=== PATIENT | female | born 1975 | race African-American/Black ===

== ENCOUNTER 2018-11-14 08:45 | Inpatient (IN) | payer BC, OTHER ==
[2018-11-09 09:52] LABS: HEMATOCRIT 37.6 % (36.0-47.0); HEMOGLOBIN 12.6 g/dL (12.0-15.5); MEAN CORPUSCULAR HEMOGLOBIN 27.2 pg (27.0-33.4); MEAN CORPUSCULAR HGB CONC 33.4 g/dL (32.0-36.0); MEAN CORPUSCULAR VOLUME 81 fl (80-97); PLATELET COUNT 431 10^3/uL (150-450); RED BLOOD COUNT 4.62 10^6/uL (3.72-5.28); RED CELL DISTRIBUTION WIDTH 13.3 % (11.5-14.0); WHITE BLOOD COUNT 6.1 10^3/uL (4.0-10.5)
[2018-11-09 09:54] LABS: APPEARANCE,URINE SLIGHTLY-CLOUDY; BILIRUBIN,URINE NEGATIVE (NEGATIVE); COLOR,URINE YELLOW; GLUCOSE, URINE >=500 mg/dL (NEGATIVE); KETONES,URINE 20 mg/dL (NEGATIVE); LEUKOCYTE ESTERASE,URINE NEGATIVE (NEGATIVE); NITRITE,URINE NEGATIVE (NEGATIVE); PROTEIN,URINE NEGATIVE (NEGATIVE); URINE SPECIFIC GRAVITY 1.039; UROBILINOGEN,URINE NEGATIVE mg/dL (<2.0)
[2018-11-09 10:10] LABS: ALBUMIN 4.6 g/dL (3.5-5.0); ALKALINE PHOSPHATASE 54 U/L (38-126); ANION GAP 14 (5-19); ASPARTATE AMINO TRANSFERASE 19 U/L (14-36); BILIRUBIN,DIRECT 0.2 mg/dL (0.0-0.4); BILIRUBIN,TOTAL 0.5 mg/dL (0.2-1.3); BLOOD UREA NITROGEN 11 mg/dL (7-20); CALCIUM 10.1 mg/dL (8.4-10.2); CARBON DIOXIDE 26 mmol/L (22-30); CHLORIDE 94 mmol/L (98-107); GLUCOSE 364 mg/dL (75-110); POTASSIUM 4.7 mmol/L (3.6-5.0); TOTAL PROTEIN 7.6 g/dL (6.3-8.2)
[~2018-11-14 08:45] MED LIST: CEFAZOLIN SODIUM 2 GM in DEXTROSE 5%-WATER 100 ML IV PRN; LACTATED RINGERS 1000 ML IV PRN; LIDOCAINE 0.5% INJ-PF (5 MG/ML) 50 ML SDV SUBCUT PRN
[2018-11-14] MEDS ORDERED: FENTANYL CITRATE INJ/PF 250 MCG/5 ML AMPULE ONE (09:18)
[2018-11-14] MEDS ORDERED: MIDAZOLAM 2 MG/2 ML INJ ONE (09:18)
[2018-11-14] MEDS ORDERED: PROPOFOL INJ 200 MG/20 ML VIAL IV ONE (09:19)
[2018-11-14] MEDS ORDERED: INSULIN REG, HUMAN 100 UNIT/ML 3 ML VIAL (PYX) ONE ×2 (09:27→12:24)
[2018-11-14] MEDS ORDERED: GLYCOPYRROLATE 1 MG/5 ML VIAL ONE (09:49)
[2018-11-14] MEDS ORDERED: ROCURONIUM BROMIDE INJ 50 MG/5 ML VIAL IV ONE (09:49)
[2018-11-14] MEDS ORDERED: NEOSTIGMINE METHYLSULFATE 10 MG/10 ML VIAL ONE (09:49)
[2018-11-14] MEDS ORDERED: DEXAMETHASONE SOD PHOSPHATE INJ 4 MG/1 ML VIAL ONE (09:49)
[2018-11-14] MEDS ORDERED: LIDOCAINE 2% INJ-PF (20 MG/ML) 2 ML AMPUL ONE (09:49)
[2018-11-14] MEDS ORDERED: KETOROLAC TROMETHAMINE 60 MG/2 ML SDV ONE (09:49)
[2018-11-14] MEDS ORDERED: ONDANSETRON HCL INJ/PF 4 MG/2 ML SDV ONE (09:49)
[2018-11-14] MEDS ORDERED: ONDANSETRON HCL INJ/PF 4 MG/2 ML SDV IV PRN (10:00)
[2018-11-14] MEDS ORDERED: DIPHENHYDRAMINE HCL 50 MG/ML VIAL IV PRN (10:00)
[2018-11-14] MEDS ORDERED: FENTANYL CITRATE INJ/PF 100 MCG/2 ML AMPUL IV PRN ×3 (10:00)
[2018-11-14] MEDS ORDERED: MEPERIDINE HCL/PF INJ 25 MG/1 ML DISP.SYRIN IV PRN (10:00)
[2018-11-14] MEDS ORDERED: MORPHINE SULFATE 10 MG/ML INJ IV PRN (10:00)
[2018-11-14] MEDS ORDERED: OXYCODONE-ACETAMINOPHEN 5-325 MG TABLET PO PRN ×3 (10:00→11:48)
[2018-11-14] MEDS ORDERED: PROMETHAZINE HCL INJ 25 MG/1 ML VIAL IV PRN ×2 (10:00→11:48)
[2018-11-14] MEDS ORDERED: SIMETHICONE 80 MG TAB.CHEW PO PRN (11:48)
[2018-11-14] MEDS ORDERED: ACETAMINOPHEN 325 MG TABLET PO PRN (11:48)
[2018-11-14] MEDS ORDERED: ACETAMINOPHEN 1,000 MG/100 ML RTUPB IV PRN (11:48)
--- NOTE | 2018-11-14 12:05 | Operative Report ---
Operative Report DATE OF SURGERY: 11/14/18 PREOPERATIVE DIAGNOSIS: Patient with heavy menses fibroids and enlarged uterus requesting hysterectomy and bilateral salongo-oophorectomy POSTOPERATIVE DIAGNOSIS: Same OPERATION: OPHELIA/BSO SURGEON: ABEL CANTU ANESTHESIA: GA TISSUE REMOVED OR ALTERED: Uterus tubes and ovaries COMPLICATIONS: None ESTIMATED BLOOD LOSS: 120 cc INTRAOPERATIVE FINDINGS: Dense scarring at the fascia as well as the low uterine segment. PROCEDURE: Patient was taken the OR and placed in supine position. General anesthesia was induced. Her perineum and vagina were prepared in sterile fashion Holliday catheter was placed. Her abdomen was prepared in a sterile fashion as well. She was draped. A low transverse incision was made on her old scar. This was carried down the level of the fascia which was nicked in the midline. Fascial incision was extended bilaterally using curved Walker scissors. The fascia was off the rectus muscles using sharp and blunt dissection. There was dense scarring at this layer. The rectus muscles were midline. [place] toneum was entered without incident. Peritoneal incision was extended superiorly and inferiorly take care not to injure bladder. An Gus retractor was then placed. The bowel contents were packed back with 3 moist lap sponges. The uterus was brought out of the incision and grasped with a Yoselin thyroid clamp. Using the LigaSure device the round ligaments were divided bilaterally. Peritoneum was incised anteriorly creating a bladder flap. The ureters were noted well away from the ovarian pedicles and the infundibulopelvic pedicles were clamped cauterized and cut using the LigaSure device. Both ovaries and tubes were passed off the field at this point. The bladder was taken off the anterior aspect cervix using sharp and blunt dissection. There was quite a bit of scarring in this region as well. The uterine arteries were skeletonized and then clamped with the LigaSure device cauterized and cut. Likewise the cardinal ligaments were clamped cauterized and cut with the LigaSure device. During this time I continued to take the bladder off the lower aspect of the cervix using mainly sharp dissection. The low aspect of the cervix could be palpated. The vaginal angles were clamped with curved Kena clamp bilaterally and cut. The cervix was excised free with curved scissors. There was a large polyp hanging out the cervix. The angle sutures have been previously placed and the vaginal cuff was closed with a running locking layer of 0 Vicryl. The tissue in this low pelvis was quite scarred and it is possible that a small bit of cervix may have been left behind. I was unable to palpate any remaining cervix. The pelvis was irrigated and suctioned free of fluid. Hemostasis was good. Lap sponges were removed and retractor removed. The bowel was allowed to settle and sent natural configuration. The anterior abdominal peritoneum was closed with a running 2-0 chromic stitch. Subfascial tissues were inspected for bleeding the fascia was closed with a running 0 Vicryl in 2 segments. The wound was irrigated and suctioned free of fluid in the subcu layer was closed with a 2-0 plain gut stitch and skin closed with a 4-0 undyed Vicryl stitch. Dressing was applied. She was brought out of anesthesia and taken to recovery room in stable condition.
[2018-11-14] MEDS: INSULIN REG, HUMAN 100 UNIT/ML 3 ML VIAL (PYX) SUBCUT ONE ×2 (12:24→13:47)
[2018-11-14] MEDS: FENTANYL CITRATE INJ/PF 100 MCG/2 ML AMPUL ONE ×2 (12:26→12:30)
[2018-11-14] MEDS ORDERED: DEXTROSE 40% GEL 15 GM TUBE X 2 PO PRN (12:30)
[2018-11-14] MEDS ORDERED: DEXTROSE 50%-WATER SYRINGE 25 GM/50 ML DOSE IV PRN (12:30)
[2018-11-14] MEDS ORDERED: DEXTROSE 50%-WATER SYRINGE 12.5 GM/25 ML DOSE IV PRN (12:30)
[2018-11-14] MEDS ORDERED: GLUCAGON,HUMAN RECOMB 1 MG INJ IM ONE (12:30)
[2018-11-14] MEDS ORDERED: GLUCAGON,HUMAN RECOMB 1 MG INJ IM PRN (12:30)
[2018-11-14] MEDS ORDERED: DEXTROSE 40% GEL 15 GM TUBE PO PRN (12:30)
[2018-11-14] MEDS: OXYCODONE-ACETAMINOPHEN 5-325 MG TABLET PO PRN ×2 (13:30→19:47)
[2018-11-14] MEDS: IBUPROFEN 800 MG TABLET PO SCH ×2 (13:30→18:30)
[2018-11-14] MEDS: HYDROMORPHONE HCL INJ/PF 2 MG/ML AMPULE IV PRN ×2 (13:44→16:44)
[2018-11-14] MEDS ORDERED: GLIPIZIDE PO SCH (14:26)
--- NOTE | 2018-11-14 15:09 | PDOC CONSULTATION ---
Consultation Consult Date: 11/14/18 Attending physician:: Dr. Osman Provider Consulted: RADHA NAVARRO Consult reason:: Diabetes mellitus History of Present Illness Admission Date/PCP: 11/14/18 08:[facility] Patient complains of: High blood sugars History of Present Illness: ANNA ESCOBAR is a 42 year old female with h/o gestestional dm , on metformin 500 mg p.o. twice daily and glipizide 5 mg extended release,htn,anemia, depression admitted for hysterectomy and bilateral salpingo-oophorectomy had a successful surgery medical consult was called because her blood sugars are around 350. No complaints from the patient. Comfortable in the bed she says she is compliant with her medications. Past Medical History Cardiac Medical History: Reports: Hypertension Neurological Medical History: Denies: Seizures Endocrine Medical History: Reports: Diabetes Mellitus Type 2 Denies: Hyperthyroidism, Hypothyroidism Malignancy Medical History: Denies: Breast Cancer, Cervical Cancer, Leukemia, Ovarian Cancer Psychiatric Medical History: Reports: Depression - AND ANXIETY Denies: Bipolar Disorder, Dementia, Post Traumatic Stress Disorder Hematology: Reports: Anemia Denies: Hemophilia, Sickle Cell Disease Infectious Medical History: Denies: HIV Past Surgical History Past Surgical History: Reports: Section - 2 CSECTIONS Denies: Appendectomy, Cholecystectomy, Coronary Artery Bypass Graft, Gastric Bypass Surgery, Herniorrhaphy, Hysterectomy, Pacemaker, Tonsillectomy Social History Smoking Status: Never Smoker Frequency of Alcohol Use: None Hx Recreational Drug Use: No Hx Prescription Drug Abuse: No - Advance Directive Resuscitation Status: Full Code Family History Parental Family History Reviewed: Yes - Hypertension. Children Family History Reviewed: Yes Sibling(s) Family History Reviewed.: Yes Medication/Allergy Home Medications: Acyclovir [Zovirax 200 mg Capsule] 200 mg PO DAILY 04/21/12 Lisinopril [Prinivil 10 mg Tablet] 10 mg PO DAILY 04/21/12 Metformin HCl [Glucophage 500 Mg Tablet] 500 mg PO BID 04/21/12 Glipizide [Glucotrol Xl] 1 tab PO DAILY 11/09/18 Meloxicam [Mobic] 1 tab PO DAILY 11/09/18 Allergies/Adverse Reactions: No Known Drug Allergies Allergy (Verified 11/09/18 09:40) Review of Systems Constitutional: ABSENT: fatigue, fever(s), headache(s), weakness Eyes: ABSENT: visual disturbances Ears: ABSENT: hearing changes Nose, Mouth, and Throat: ABSENT: sore throat Cardiovascular: ABSENT: palpitations Respiratory: ABSENT: dyspnea, hemoptysis Genitourinary: ABSENT: dysuria Integumentary: ABSENT: rash, wounds Neurological: ABSENT: abnormal gait, abnormal speech, confusion, dizziness, focal weakness, syncope Psychiatric: PRESENT: as per HPI Physical Exam Vital Signs: Temp Pulse Resp BP Pulse Ox 97.7 F 75 12 111/62 100 11/14/18 13:12 11/14/18 13:43 11/14/18 12:46 11/14/18 13:43 11/14/18 13:43 Intake & Output 11/13/18 11/14/18 11/15/18 06:59 06:59 06:59 Intake Total 2100 Output Total 600 Balance 1500 General appearance: PRESENT: no acute distress, cooperative Eye exam: PRESENT: PERRLA Mouth exam: PRESENT: dry mucosa Neck exam: ABSENT: carotid bruit, JVD, lymphadenopathy, thyromegaly Respiratory exam: PRESENT: clear to auscultation rahul. ABSENT: rales, rhonchi, wheezes Cardiovascular exam: PRESENT: RRR. ABSENT: diastolic murmur, rubs, systolic murmur GI/Abdominal exam: PRESENT: normal bowel sounds, soft. ABSENT: distended, guarding, mass, organolmegaly, rebound, tenderness Rectal exam: PRESENT: deferred Extremities exam: PRESENT: full ROM. ABSENT: calf tenderness, clubbing, pedal edema Neurological exam: PRESENT: alert, awake, oriented to person, oriented to place, oriented to time, oriented to situation, CN II-XII grossly intact. ABSENT: motor sensory deficit Skin exam: PRESENT: dry, intact, warm. 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 twice daily at home. She was started on a diabetic diet today to check the blood sugars before meals and at bedtime with insulin sliding scale coverage Metformin was increased to thousand milligrams p.o. twice daily and the plan is to continue glipizide , and I started on Lantus 10 units twice a day. To check hemoglobin A1c and lipid panel tomorrow morning. Started on atorvastatin 5 mg p.o. nightly patient is already on lisinopril 10 mg daily. Diet exercise weight loss lifestyle modifications discussed with the patient dietary consult was requested. GI perplexes with Protonix was started. (2) HTN (hypertension) Is this a current diagnosis for this admission?: No Plan: 11/14/2018-patient blood pressure is 110/60. She is on lisinopril 10 mg p.o. daily at home plan is to continue the management. (3) Hyponatremia Is this a current diagnosis for this admission?: Yes Plan: 11/14/2018-serum sodium is 134, blood sugar is 3oo, corrected serum sodium is around 137. And is to continue to closely monitor serum sodium levels. Patient is presently on Ringer lactate. - Time Time Spent with patient: 25-34 minutes Medications reviewed and adjusted accordingly: Yes Anticipated discharge: Home
[2018-11-14 15:56] LABS: ANION GAP 7 (5-19); BLOOD UREA NITROGEN 7 mg/dL (7-20); CALCIUM 8.9 mg/dL (8.4-10.2); CARBON DIOXIDE 28 mmol/L (22-30); CHLORIDE 101 mmol/L (98-107); GLUCOSE 241 mg/dL (75-110); POTASSIUM 3.9 mmol/L (3.6-5.0)
[2018-11-14 15:57] LABS: HEMATOCRIT 33.6 % (36.0-47.0); HEMOGLOBIN 11.1 g/dL (12.0-15.5); MEAN CORPUSCULAR HEMOGLOBIN 26.7 pg (27.0-33.4); MEAN CORPUSCULAR HGB CONC 33.1 g/dL (32.0-36.0); MEAN CORPUSCULAR VOLUME 80 fl (80-97); PLATELET COUNT 395 10^3/uL (150-450); RED BLOOD COUNT 4.18 10^6/uL (3.72-5.28); RED CELL DISTRIBUTION WIDTH 13.7 % (11.5-14.0); WHITE BLOOD COUNT 13.6 10^3/uL (4.0-10.5)
[2018-11-14 16:01] LABS: ABSOLUTE LYMPHOCYTES# (MANUAL) 1.2 10^3/uL (0.5-4.7); ABSOLUTE MONOCYTES # (MANUAL) 0.7 10^3/uL (0.1-1.4); BASOPHILS % (MANUAL) 0 % (0-2); EOSINOPHILS % (MANUAL) 0 % (0-6); LYMPHOCYTES % (MANUAL) 9 % (13-45); MONOCYTES % (MANUAL) 5 % (3-13); SEGMENTED NEUTROPHILS % (MAN) 86 % (42-78); TOTAL CELLS COUNTED 100
[2018-11-14 16:02] LABS: PLATELET COMMENT ADEQUATE; TOXIC VACUOLATION PRESENT
[2018-11-14] MEDS: METFORMIN HCL 500 MG TABLET PO SCH (16:40)
[2018-11-14] MEDS: PANTOPRAZOLE SODIUM 40 MG TABLET.DR PO SCH (16:40)
[2018-11-14] MEDS: INSULIN REG, HUMAN 100 UNIT/ML 3 ML VIAL (PYX) SUBCUT SCH ×2 (16:41→22:34)
[2018-11-14] MEDS ORDERED: KETOROLAC TROMETHAMINE INJ/PF 30 MG/1 ML SDV IV PRN (16:49)
[2018-11-14] MEDS ORDERED: METFORMIN HCL 500 MG TABLET PO SCH (17:00)
[2018-11-14] MEDS: DOCUSATE SODIUM 100 MG CAPSULE PO SCH (18:30)
[2018-11-14] MEDS: RINGERS SOLUTION,LACTATED 1,000 ML IV PRN (22:00)
[2018-11-14] MEDS: SERTRALINE HCL 50 MG TABLET PO SCH (22:33)
[2018-11-14] MEDS: ATORVASTATIN CALCIUM 10 MG TABLET PO SCH (22:33)
[2018-11-14] MEDS: INSULIN GLARGINE,HUM.REC.ANLOG 1,000 UNIT/10 ML VIAL SUBCUT SCH (22:36)
[2018-11-15] MEDS: IBUPROFEN 800 MG TABLET PO SCH ×5 (00:05→23:25)
[2018-11-15] MEDS: OXYCODONE-ACETAMINOPHEN 5-325 MG TABLET PO PRN ×4 (01:17→22:03)
[2018-11-15] MEDS: PANTOPRAZOLE SODIUM 40 MG TABLET.DR PO SCH ×2 (06:08→17:36)
[2018-11-15] MEDS: RINGERS SOLUTION,LACTATED 1,000 ML IV PRN (06:09)
[2018-11-15 07:07] LABS: HEMATOCRIT 31.6 % (36.0-47.0); HEMOGLOBIN 10.6 g/dL (12.0-15.5); MEAN CORPUSCULAR HEMOGLOBIN 27.1 pg (27.0-33.4); MEAN CORPUSCULAR HGB CONC 33.5 g/dL (32.0-36.0); MEAN CORPUSCULAR VOLUME 81 fl (80-97); PLATELET COUNT 362 10^3/uL (150-450); RED CELL DISTRIBUTION WIDTH 13.1 % (11.5-14.0); WHITE BLOOD COUNT 9.6 10^3/uL (4.0-10.5)
[2018-11-15 07:22] LABS: ALBUMIN 3.2 g/dL (3.5-5.0); ALKALINE PHOSPHATASE 41 U/L (38-126); ANION GAP 7 (5-19); ASPARTATE AMINO TRANSFERASE 21 U/L (14-36); BILIRUBIN,DIRECT 0.2 mg/dL (0.0-0.4); BILIRUBIN,TOTAL 0.3 mg/dL (0.2-1.3); BLOOD UREA NITROGEN 7 mg/dL (7-20); CALCIUM 9.2 mg/dL (8.4-10.2); CARBON DIOXIDE 31 mmol/L (22-30); CHLORIDE 99 mmol/L (98-107); CHOLESTEROL 102.34 mg/dL (0-200); GLUCOSE 170 mg/dL (75-110); POTASSIUM 3.5 mmol/L (3.6-5.0); TOTAL PROTEIN 5.9 g/dL (6.3-8.2); TRIGLYCERIDES 50 mg/dL (<150)
[2018-11-15 07:41] LABS: DIRECT LDL 71 mg/dL (<100)
[2018-11-15] MEDS: METFORMIN HCL 500 MG TABLET PO SCH ×2 (07:49→17:36)
[2018-11-15 08:39] LABS: APPEARANCE,URINE CLEAR; BILIRUBIN,URINE NEGATIVE (NEGATIVE); COLOR,URINE STRAW; GLUCOSE, URINE 150 mg/dL (NEGATIVE); KETONES,URINE NEGATIVE (NEGATIVE); LEUKOCYTE ESTERASE,URINE NEGATIVE (NEGATIVE); NITRITE,URINE NEGATIVE (NEGATIVE); PROTEIN,URINE NEGATIVE (NEGATIVE); URINE SPECIFIC GRAVITY 1.009; UROBILINOGEN,URINE NEGATIVE mg/dL (<2.0)
--- NOTE | 2018-11-15 08:45 | PDOC PROGRESS REPORT ---
Subjective Progress Note for:: 11/15/18 Subjective:: She is eating today. Her catheter is been removed. Reason For Visit: D25.9 LEIOMYOMA OF UTERUS, UNSPECIFIED Physical Exam - Physical Exam Vital Signs: Temp Pulse Resp BP Pulse Ox 97.8 F 74 16 113/72 100 11/15/18 07:34 11/15/18 07:34 11/15/18 07:34 11/15/18 07:34 11/15/18 07:34 Intake & Output 11/14/18 11/15/18 11/16/18 06:59 06:59 06:59 Intake Total 3180 Output Total 2000 Balance 1180 General appearance: PRESENT: no acute distress, well-developed, well-nourished Cardiovascular exam: PRESENT: RRR. ABSENT: diastolic murmur, rubs, systolic murmur Pulses: PRESENT: normal dorsalis pedis pul, +2 pedal pulses bilateral Vascular exam: PRESENT: normal capillary refill GI/Abdominal exam: PRESENT: hypoactive bowel sounds, soft - Dressing is dry Result Laboratory Results: 11/15/18 06:24 11/15/18 06:24 11/14/18 11/14/18 11/15/18 15:10 15:10 06:24 WBC 13.6 H 9.6 RBC 4.18 3.90 Hgb 11.1 L 10.6 L Hct 33.6 L 31.6 L MCV 80 81 MCH 26.7 L 27.1 MCHC 33.1 33.5 RDW 13.7 13.1 Plt Count 395 362 Seg Neutrophils % Not Reportable Lymphocytes % Not Reportable Monocytes % Not Reportable Eosinophils % Not Reportable Basophils % Not Reportable Absolute Neutrophils Not Reportable Absolute Lymphocytes Not Reportable Absolute Monocytes Not Reportable Absolute Eosinophils Not Reportable Absolute Basophils Not Reportable Sodium 136.0 L Potassium 3.9 Chloride 101 Carbon Dioxide 28 Anion Gap 7 BUN 7 Creatinine 0.49 L Est GFR ( Amer) > 60 Est GFR (Non-Af Amer) > 60 Glucose 241 H Calcium 8.9 Magnesium Total Bilirubin AST Alkaline Phosphatase Total Protein Albumin Triglycerides Cholesterol LDL Cholesterol Direct VLDL Cholesterol HDL Cholesterol Urine Color Urine Appearance Urine pH Ur Specific [place] Urine Protein Urine Glucose (UA) Urine Ketones Urine Blood Urine Nitrite Ur Leukocyte Esterase Urine WBC (Auto) Urine RBC (Auto) 08/13/19 08/13/19 06:24 08:01 WBC RBC Hgb Hct MCV MCH MCHC RDW Plt Count Seg Neutrophils % Lymphocytes % Monocytes % Eosinophils % Basophils % Absolute Neutrophils Absolute Lymphocytes Absolute Monocytes Absolute Eosinophils Absolute Basophils Sodium 137.2 Potassium 3.5 L Chloride 99 Carbon Dioxide 31 H Anion Gap 7 BUN 7 Creatinine 0.61 Est GFR ( Amer) > 60 Est GFR (Non-Af Amer) > 60 Glucose 170 H Calcium 9.2 Magnesium 1.6 Total Bilirubin 0.3 AST 21 Alkaline Phosphatase 41 Total Protein 5.9 L Albumin 3.2 L Triglycerides 50 Cholesterol 102.34 LDL Cholesterol Direct 71 VLDL Cholesterol 10.0 HDL Cholesterol 30 L Urine Color STRAW Urine Appearance CLEAR Urine pH 6.0 Ur Specific [place] 1.009 Urine Protein NEGATIVE Urine Glucose (UA) 150 H Urine Ketones NEGATIVE Urine Blood NEGATIVE Urine Nitrite NEGATIVE Ur Leukocyte Esterase NEGATIVE Urine WBC (Auto) 1 Urine RBC (Auto) 0 Impressions: Postop day 1 from hysterectomy Assessment & Plan - Diagnosis (1) Leiomyoma Is this a current diagnosis for this admission?: Yes Plan: We will continue her postoperative care for now. We will advance her diet and continue to work on control of her diabetes. - Time Time Spent with patient: 15-24 minutes Medications reviewed and adjusted accordingly: Yes Anticipated discharge: Home Within: within 36 hours
[2018-11-15] MEDS ORDERED: GLIPIZIDE PO SCH (10:00)
[2018-11-15] MEDS: DOCUSATE SODIUM 100 MG CAPSULE PO SCH ×2 (10:17→17:37)
[2018-11-15] MEDS: PRENATAL VITAMIN W DHA CAPSULE PO SCH (10:17)
[2018-11-15] MEDS: GLIPIZIDE XL 5 MG TAB.ER.24 PO SCH (10:17)
[2018-11-15] MEDS: INSULIN GLARGINE,HUM.REC.ANLOG 1,000 UNIT/10 ML VIAL SUBCUT SCH ×2 (11:11→21:56)
[2018-11-15] MEDS: LISINOPRIL 10 MG TABLET PO SCH (11:20)
[2018-11-15] MEDS: INSULIN LISPRO 100 UNIT/ML 3 ML VIAL SUBCUT SCH ×3 (12:25→22:03)
--- NOTE | 2018-11-15 16:58 | PDOC PROGRESS REPORT ---
Subjective Subjective:: The patient is a 42-year-old female with a history of diabetes mellitus, hypertension, anemia, and depression who was admitted by the gynecological service for hysterectomy and bilateral salpingo-oophorectomy. The hospitalist service was consulted for elevated blood sugars. Patient was seen on morning rounds. She was found resting in bed comfortably on room air. She was meeting with the clinical document improvement educator at the time of my assessment. She reports that she is previously been on metformin twice daily and glipizide e xtended release once daily; not aware of what her previous hemoglobin A1c was. Discussed indications for long-acting insulin given her A1c of 11.7 with continued oral antidiabetic regiment. Patient has self administered her insulin dose this morning and feels comfortable to continue to do so as an outpatient. She denies fever, chills, headache, dizziness, diaphoresis, chest pain, dyspnea, abdominal pain, nausea vomiting and diarrhea. She has no specific questions or concerns at this time. No concerns per nursing. Reason For Visit: D25.9 LEIOMYOMA OF UTERUS, UNSPECIFIED Physical Exam Vital Signs: Temp Pulse Resp BP Pulse Ox 97.9 F 85 16 96/58 L 99 11/15/18 16:07 11/15/18 16:07 11/15/18 16:07 11/15/18 16:07 11/15/18 16:07 Intake & Output 11/14/18 11/15/18 11/16/18 06:59 06:59 06:59 Intake Total 3180 Output Total 2000 1400 Balance 1180 -1400 General appearance: PRESENT: no acute distress, cooperative, well-developed, well-nourished - overweight Head exam: PRESENT: atraumatic, normocephalic Eye exam: PRESENT: conjunctiva pink, EOMI, PERRLA. ABSENT: scleral icterus Ear exam: PRESENT: normal external ear exam Mouth exam: PRESENT: moist, tongue midline Neck exam: ABSENT: carotid bruit, JVD, lymphadenopathy, thyromegaly Respiratory exam: PRESENT: clear to auscultation rahul, symmetrical, unlabored. ABSENT: rales, rhonchi, wheezes Cardiovascular exam: PRESENT: RRR, +S1, +S2. ABSENT: diastolic murmur, rubs, systolic murmur Pulses: PRESENT: normal dorsalis pedis pul Vascular exam: PRESENT: normal capillary refill GI/Abdominal exam: PRESENT: normal bowel sounds, soft. ABSENT: distended, guarding, mass, organolmegaly, rebound, tenderness Rectal exam: PRESENT: deferred Extremities exam: PRESENT: full ROM. ABSENT: calf tenderness, clubbing, pedal edema Neurological exam: PRESENT: alert, awake, oriented to person, oriented to place, oriented to time, oriented to situation, CN II-XII grossly intact. ABSENT: motor sensory deficit Psychiatric exam: PRESENT: appropriate affect, normal mood. ABSENT: homicidal ideation, suicidal ideation Skin exam: PRESENT: dry, intact, warm. ABSENT: cyanosis, rash Results Laboratory Results: 11/15/18 06:24 11/15/18 06:24 11/15/18 11/15/18 11/15/18 06:24 06:24 08:01 WBC 9.6 RBC 3.90 Hgb 10.6 L Hct 31.6 L MCV 81 MCH 27.1 MCHC 33.5 RDW 13.1 Plt Count 362 Sodium 137.2 Potassium 3.5 L Chloride 99 Carbon Dioxide 31 H Anion Gap 7 BUN 7 Creatinine 0.61 Est GFR ( Amer) > 60 Est GFR (Non-Af Amer) > 60 Glucose 170 H Calcium 9.2 Magnesium 1.6 Total Bilirubin 0.3 AST 21 Alkaline Phosphatase 41 Total Protein 5.9 L Albumin 3.2 L Triglycerides 50 Cholesterol 102.34 LDL Cholesterol Direct 71 VLDL Cholesterol 10.0 HDL Cholesterol 30 L Urine Color STRAW Urine Appearance CLEAR Urine pH 6.0 Ur Specific [place] 1.009 Urine Protein NEGATIVE Urine Glucose (UA) 150 H Urine Ketones NEGATIVE Urine Blood NEGATIVE Urine Nitrite NEGATIVE Ur Leukocyte Esterase NEGATIVE Urine WBC (Auto) 1 Urine RBC (Auto) 0 Assessment and Plan - Diagnosis (1) Diabetes Qualifiers: Diabetes mellitus type: type 2 Diabetes mellitus truck terminal manager insulin use: without group home use Diabetes mellitus complication status: with hyperglycemia Qualified Code(s): E11.65 - Type 2 diabetes mellitus with hyperglycemia Is this a current diagnosis for this admission?: Yes Plan: Hemoglobin A1c 11.7%. Patient is placed on a consistent carb diet. clinical document improvement educator and registered dietitian are consulted. She has started on Lantus with sliding scale Humalog while admitted. Plans are to discharge the patient on metformin, glipizide, and Lantus 10 units nightly. Continue home dose lisinopril and start Low-dose atorvastatin for protective properties. Patient's blood sugars are much improved after initiating long-acting insulin; fasting glucose this morning was 180. Will sign off at this time; please reconsult if we can be of further assistance. (2) HTN (hypertension) Is this a current diagnosis for this admission?: No Plan: Continue home medication regiment. (3) Hyponatremia Is this a current diagnosis for this admission?: Yes Plan: Resolved; likely pseudohyponatremia secondary to elevated glucose. (4) Leiomyoma Is this a current diagnosis for this admission?: Yes Plan: Primary management per gynecological service; now status post hysterectomy and bilateral salpingo-oophorectomy - Time Time Spent with patient: 15-24 minutes Medications reviewed and adjusted accordingly: Yes Anticipated discharge: Home Within: Other - Per primary service - Plan Summary Plan Summary: We will sign off at this time; please reconsult if the hospitalist service can be of further assistance. Prescriptions for Lantus, test strips, lancets, insulin syringes, and atorvastatin have been placed in the patient's chart.
[2018-11-15] MEDS: SERTRALINE HCL 50 MG TABLET PO SCH (21:55)
[2018-11-15] MEDS: ATORVASTATIN CALCIUM 10 MG TABLET PO SCH (21:55)
[2018-11-16] MEDS: IBUPROFEN 800 MG TABLET PO SCH ×2 (05:29→12:10)
[2018-11-16] MEDS: PANTOPRAZOLE SODIUM 40 MG TABLET.DR PO SCH (05:30)
[2018-11-16] MEDS: METFORMIN HCL 500 MG TABLET PO SCH (07:48)
--- NOTE | 2018-11-16 08:05 | PDOC DISCHARGE SUMMARY ---
General - Admit/Disc Date/PCP Admission Date/Primary Care Provider: 11/14/18 08:[facility] Discharge Date: 11/16/18 - Discharge Diagnosis (1) Leiomyoma Is this a current diagnosis for this admission?: Yes (2) Diabetes Is this a current diagnosis for this admission?: Yes - Additional Information Resuscitation Status: Full Code Discharge Diet: Regular Discharge Activity: Balance Activity w/Rest, No Driving, Pelvic Rest Prescriptions: Atorvastatin Calcium [Lipitor 10 mg Tablet] 5 mg PO QHS #30 tablet Insulin Glargine,Hum.rec.anlog [Lantus Insulin 100 Unit/1 ml 10 ml] 10 unit SUBCUT QHS #1 unit Oxycodone HCl/Acetaminophen [Percocet 5-325 mg Tablet] 1 tab PO Q4HP PRN #30 tablet PRN Reason: Blood Sugar Diagnostic [Test Strips] 1 each MC ACHS #120 strip Lancets [Lancets Thin] 1 each MC ACHS #120 each Metformin HCl [Glucophage 500 mg Tablet] 1,000 mg PO BIDBS #120 tablet Syringe and Needle,Insulin,1Ml [Insulin Syringe] 1 each MC BID #60 disp.syrin Home Medications: Ferrous Sulfate 324 mg PO TID 11/14/18 Glipizide [Glucotrol] 5 mg PO BID 11/14/18 Lisinopril [Prinivil] 5 mg PO DAILY 11/14/18 Metformin HCl [Metformin HCl ER] 1,000 mg PO BID 11/14/18 Sertraline HCl [Zoloft] 100 mg PO QHS 11/14/18 Valacyclovir HCl [Valtrex 500 mg Tablet] 1 gm PO DAILY 11/14/18 Atorvastatin Calcium [Lipitor 10 mg Tablet] 5 mg PO QHS #30 tablet 11/15/18 Blood Sugar Diagnostic [Test Strips] 1 each ACHS #120 strip 11/15/18 Glipizide [Glucotrol Xl 5 mg Tab.er] 10 mg PO DAILY tab.er.24 11/15/18 Insulin Glargine,Hum.rec.anlog [Lantus Insulin 100 Unit/1 ml 10 ml] 10 unit SUBCUT QHS #1 unit 11/15/18 Lancets [Lancets Thin] 1 each MC ACHS #120 each 11/15/18 Lisinopril [Prinivil 10 mg Tablet] 10 mg PO DAILY tablet 11/15/18 Metformin HCl [Glucophage 500 mg Tablet] 1,000 mg PO BIDBS #120 tablet 11/15/18 Syringe and Needle,Insulin,1Ml [Insulin Syringe] 1 each MC BID #60 disp.syrin 11/15/18 Oxycodone HCl/Acetaminophen [Percocet 5-325 mg Tablet] 1 tab PO Q4HP PRN #30 tablet 11/16/18 History of Present Illness Patient complains of: Heavy menses and fibroid uterus History of Present Illness: ANNA ESCOBAR is a 42 year old female She presents from Dr. De Los Santos with heavy menses fibroid uterus. She gets her diabetes care at the [facility]. She wishes to undergo hysterectomy. Her work-up is been completed by Dr. De Los Santos with the Pap smear endometrial biopsy and ultrasound. She wishes to have a OPHELIA/BSO to remove the uterus and the ovaries. Hospital Course Hospital Course: Patient underwent a hysterectomy with bilateral subbing oophorectomy. Denies surgery she did well her pain was controlled. We did note during the course of her hospitalization that her sugars were much higher than what she described at home. For this reason a hospital consult was ordered to help with her diabetes management. And is evident that she needs insulin at this time. Postop day 1 her catheter was removed and she was able to ambulate and switch to oral pain medication. Postop day 2 she continues to do well. She has positive bowel sounds she is passing gas and is ready to go home at this time. Physical Exam - Physical Exam Vital Signs: Temp Pulse Resp BP Pulse Ox 98.0 F 78 18 116/72 94 11/16/18 04:45 11/16/18 04:45 11/16/18 04:45 11/16/18 04:45 11/16/18 04:45 Intake & Output 11/15/18 11/16/18 11/17/18 06:59 06:59 06:59 Intake Total 3180 Output Total 1999 1400 Balance 1180 -1400 Weight 75 kg General appearance: PRESENT: no acute distress, well-developed, well-nourished Head exam: PRESENT: atraumatic, normocephalic Respiratory exam: PRESENT: clear to auscultation rahul Cardiovascular exam: PRESENT: RRR. ABSENT: diastolic murmur, rubs, systolic murmur Pulses: PRESENT: normal dorsalis pedis pul, +2 pedal pulses bilateral Vascular exam: PRESENT: normal capillary refill Result Laboratory Results: 11/15/18 06:24 11/15/18 06:24 11/15/18 08:01 Urine Color STRAW Urine Appearance CLEAR Urine pH 6.0 Ur Specific [place] 1.009 Urine Protein NEGATIVE Urine Glucose (UA) 150 H Urine Ketones NEGATIVE Urine Blood NEGATIVE Urine Nitrite NEGATIVE Ur Leukocyte Esterase NEGATIVE Urine WBC (Auto) 1 Urine RBC (Auto) 0 Impressions: Patient stable postop day 2 and will be sent home for convalescence. Plan Discharge Plan: Home with follow-up in a week. Pelvic rest no driving no heavy lifting. A prescription for pain medicine is been written. [facility]. Time Spent: Less than 30 Minutes Acute Heart Failure - Is this a Heart Failure Patient?: No
[2018-11-16] MEDS: INSULIN LISPRO 100 UNIT/ML 3 ML VIAL SUBCUT SCH ×2 (08:42→12:10)
[2018-11-16 09:38] VITALS: BP 103/67
[2018-11-16] MEDS: GLIPIZIDE XL 5 MG TAB.ER.24 PO SCH (09:45)
[2018-11-16] MEDS: PRENATAL VITAMIN W DHA CAPSULE PO SCH (09:46)
[2018-11-16] MEDS: DOCUSATE SODIUM 100 MG CAPSULE PO SCH (09:46)
[2018-11-16] MEDS: LISINOPRIL 10 MG TABLET PO SCH (09:47)
[2018-11-16] MEDS: OXYCODONE-ACETAMINOPHEN 5-325 MG TABLET PO PRN (09:52)
[2018-11-16] MEDS: INSULIN GLARGINE,HUM.REC.ANLOG 1,000 UNIT/10 ML VIAL SUBCUT SCH (09:53)
== END 2018-11-16 13:55 | disposition home or self-care (01) | DRG 742 ==
LOC: INOR 08:45 → 2N 13:13
PROVIDERS: ADMIT Obstetrics & Gynecology; ATTEND Obstetrics & Gynecology
PROC: 0UT70ZZ Resection of Bilateral Fallopian Tubes, Open Approach (ICD-10-PCS; 2018-11-14)
PROC: 0UT20ZZ Resection of Bilateral Ovaries, Open Approach (ICD-10-PCS; 2018-11-14)
PROC: 0UT90ZZ Resection of Uterus, Open Approach (ICD-10-PCS; principal; 2018-11-14 11:00)
DX: D25.9 Leiomyoma of uterus, unspecified (principal); E87.1 Hypo-osmolality and hyponatremia; N92.0 Excessive and frequent menstruation with regular cycle; F32.9 Major depressive disorder, single episode, unspecified; E11.65 Type 2 diabetes mellitus with hyperglycemia; A60.00 Herpesviral infection of urogenital system, unspecified; E78.5 Hyperlipidemia, unspecified; D64.9 Anemia, unspecified; F41.9 Anxiety disorder, unspecified; I10 Essential (primary) hypertension; Z79.4 Long term (current) use of insulin; Z79.899 Other long term (current) drug therapy
CPT/HCPCS: 36415; 80048; 80053; 80061; 81001; 81025; 82962; 83036; 83735; 840; 85025; 85027; 86850; 86900; 86901; 88307; 94799; J0690; J1100; J1170; J1815; J1885; J2250; J2405; J2704; J2710; J3010; J3490; J7060; J7120